=== PATIENT | female | born 1960 ===

== ENCOUNTER 2017-08-02 09:47 | Emergency (ER) | payer OTHER ==
[~2017-08-02] VITALS: Ht 160 cm; Wt 45.4 kg
[2017-08-02] MEDS ORDERED: ZOLOFT50 MG PO (10:07)
[2017-08-02] MEDS ORDERED: XANAX1 MG PO (10:07)
[2017-08-02] MEDS ORDERED: MEDROLPACK PO (14:49)
== END 2017-08-02 14:57 | disposition home or self-care (01) ==
LOC: ER 09:47
DX: B34.9 Viral infection, unspecified (principal); R21 Rash and other nonspecific skin eruption